=== PATIENT | female | born 1965 ===

== ENCOUNTER → 2018-03-27 | Emergency (ER) | payer OTHER ==
[~2018-03-27] VITALS: Ht 154.9 cm; Wt 72.6 kg
[~2018-03-27] MED LIST: ANTIVERT25 M1 PO; LEVAQUIN500 MG PO; MEDROLPACK PO; PEPCID40 MG PO; TUSSI PRES-B L120 M1 PO
== END | disposition home or self-care (01) ==
LOC: ER 18:23
DX: B34.9 Viral infection, unspecified (principal)

== ENCOUNTER 2025-02-28 08:37 | Outpatient (CLI) | payer OTHER | END 2025-02-28 08:48 | disposition home or self-care (01) | LOC: MAMO-SONO 08:37 | PROVIDERS: ATTEND Internal Medicine | DX: N64.4 Mastodynia (principal); R92.8 Other abnormal and inconclusive findings on diagnostic imaging of breast ==